=== PATIENT | female | born 1965 | race African-American/Black ===

== ENCOUNTER 2022-07-25 20:56 | Emergency (ER) | payer MEDICARE ==
[~2022-07-25] VITALS: Ht 170.2 cm; Wt 125.6 kg
[2022-07-25 21:20] VITALS: O2SAT 97
[2022-07-25] MEDS ORDERED: FLONASE ALLERG9.9 ML INH (21:23)
== END 2022-07-25 21:35 | disposition home or self-care (01) ==
LOC: FSED 20:59
DX: R09.82 Postnasal drip (principal); J30.9 Allergic rhinitis, unspecified
CPT/HCPCS: 99282